=== PATIENT | male | born 1955 | race Caucasian/White ===

== ENCOUNTER 2018-06-12 10:44 | Emergency (ER) | payer BC ==
[~2018-06-12] VITALS: Ht 190.5 cm; Wt 88.0 kg
[2018-06-12] MEDS ORDERED: ASPI-496 PO (11:10)
--- NOTE | 2018-06-12 11:22 | NUR ---
PT PRESENTING TO ER AFTER CONSISTENT CP WITH SOB, WORSENING AT NIGHT WHEN LAYING DOWN FOR OVER A WEEK. ATTEMPTED TO SEE PCP BUT WAS TOLD TO COME TO ER. NO PMH OF CARDIAC ISSUES. CONNECTED TO ALL MONITORING, VSS HTN NOTED. CALL LIGHT WITHIN REACH. AWAITING MD ASSESSMENT AND ORDERS AT THIS TIME
--- NOTE | 2018-06-12 11:38 | NUR ---
LAB AT BEDSIDE
[2018-06-12 11:59] LABS: BASOPHILS # (AUTO) 0.04 x10^3/uL (0-0.1); BASOPHILS % (AUTO) 1 % (0-1); EOSINOPHILS # (AUTO) 0.05 x10^3/uL (0-0.4); EOSINOPHILS % (AUTO) 1 % (1-7); LYMPHOCYTES # (AUTO) 1.19 x10^3/uL (1-3.4); LYMPHOCYTES % (AUTO) 23 % (22-44); MD NO; MEAN CORPUSCULAR HEMOGLOBIN 33.9 pg (27.5-34.5); MEAN CORPUSCULAR HGB CONC 33.7 g/dL (33.2-36.2); MEAN CORPUSCULAR VOLUME 100.7 fL (81-97); MEAN PLATELET VOLUME 8.1 fL (7.4-10.4); MONOCYTES # (AUTO) 0.68 x10^3/uL (0.2-0.8); MONOCYTES % (AUTO) 13 % (2-9); NEUTROPHILS # (AUTO) 3.26 x10^3/uL (1.8-6.8); NEUTROPHILS % (AUTO) 62 % (42-75); PLATELET COUNT 279 x10^3/uL (130-400); RED BLOOD COUNT 4.53 x10^6/uL (4.38-5.82); RED CELL DISTRIBUTION WIDTH 13.2 % (9.4-14.8)
[2018-06-12 12:04] LABS: ALBUMIN 3.7 g/dL (3.4-5.0); ANION GAP 7 mmol/L (5-15); CALCIUM 8.8 mg/dL (8.5-10.1); CHLORIDE 111 mmol/L (98-107)
[2018-06-12 12:09] LABS: CREATININE 0.94 mg/dL (0.7-1.3); TROPONIN I < 0.015 ng/mL (0.000-0.045)
--- NOTE | 2018-06-12 12:16 | NUR ---
ALL RESULTS BACK AT THIS TIME, CHART UP FOR RECHECK
--- NOTE | 2018-06-12 12:39 | NUR ---
MD TO BEDSIDE TO UPDATE PT AND FAMILY ON POC, AWAITING DISPO
--- NOTE | 2018-06-12 12:50 | NUR ---
ADDITIONAL ORDERS RECEIVED FOR SERIAL TROP, IF NORMAL PT ABLE TO BE DCd
[2018-06-12 13:19] VITALS: BP 117/53
--- NOTE | 2018-06-12 13:20 | NUR ---
SBAR REPORT FROM ADIN WEST RN. PT RESTING ON [facility], CP MONITORS IN PLACE. CALL LIGHT IN REACH. FAMILY AT BEDSIDE. AWATING REPEAT TROP. ALL CONCERNS ADRESSED.
[2018-06-12 13:38] LABS: TROPONIN I < 0.015 ng/mL (0.000-0.045)
== END 2018-06-12 14:25 | disposition home or self-care (01) ==
LOC: ED 12:10
DX: R07.89 Other chest pain (principal); R06.02 Shortness of breath; R05 Cough
CPT/HCPCS: 36415; 71046; 80048; 82040; 84484; 85025; 85379; 93005; 99284